=== PATIENT | male | born 1980 | race African-American/Black ===

== ENCOUNTER → 2016-10-23 | Outpatient (CLI) | payer BC ==
--- NOTE | 2016-10-23 11:41 | KCIC ---
MR of the left knee Indication: Medial pain for a few months. No known injury. Technique: The standard multiplanar sequences are obtained. Findings: Medial meniscus:Intact. Lateral meniscus: Intact. Anterior cruciate ligament: Mild hyperintense internal fluid signal compatible with an intra-cruciate ganglion. No evidence of tear. Posterior cruciate ligament: Intact Medial collateral ligament: Intact. Iliotibial band: Intact. Posterolateral structures: Fibular collateral ligament, biceps tendon and popliteus tendon are intact. Extensor mechanism: Intact. Fluid: No significant joint effusion. No significant Raygoza's cyst. Articular cartilage -patellofemoral joint: Severe chondromalacia at the lower medial femoral trochlea with subchondral cysts. -medial compartment:Intact -lateral compartment:Intact Bones: No significant lesion or acute fracture. Soft tissue: Unremarkable Impression: 1. No meniscal tear or internal derangement. 2. 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 Electronically signed by: Luis Eduardo Sierra MD (10/23/2016 11:37 AM) [facility]
== END | disposition home or self-care (01) ==
LOC: KCIC MRI 08:19
PROVIDERS: ATTEND Orthopaedic Surgery
DX: M94.262 Chondromalacia, left knee (principal)
CPT/HCPCS: 73721